=== PATIENT | male | born 1965 ===

== ENCOUNTER 2019-02-24 12:58 | Outpatient (CLI) | payer BC ==
--- NOTE | 2019-02-24 14:30 | CT ---
CT NECK SOFT TISSUES, WITH CONTRAST: COMPARISON: No prior comparison imaging. FINDINGS: Aerodigestive tract: Free from significant mass effect. Parotid gland: No intrinsic mass, or inflammation. Submandibular glands: No intrinsic mass, or inflammation. Soft tissue mass: There is an air-filled focus adjacent the right aspect of the tracheal air column, lateral to the esophagus, 2.3 x 1.2 cm in axial dimensions. Lymph nodes: No pathologically enlarged lymph nodes visualized. Thyroid gland: Unremarkable. Incidental findings: Osseous degenerative change of the regional spine. IMPRESSION: Air-filled focus of the right neck adjacent the trachea and esophagus. This may relate to an esophage al or tracheal diverticulum or other form of air-filled duplication cyst. Consider followup with esophagram to evaluate for possible communication with the esophagus. Transcribed Date/Time: 02/24/2019 2:59 PM
== END 2019-02-24 12:59 | disposition home or self-care (01) ==
LOC: CT 12:58
PROVIDERS: ATTEND Internal Medicine
DX: R59.0 Localized enlarged lymph nodes (principal)
CPT/HCPCS: 70491